=== PATIENT | male | born 1955 | race Caucasian/White ===

== ENCOUNTER → 2017-08-05 | Outpatient (CLI) | payer OTHER ==
[~2017-08-05] MED LIST: OMNIPAQUE 180 MG/ML, 10ML VIAL ONE; ROPivacaine/PF 0.2%, 10 ML ONE; TRIAMCINOLONE ACETONIDE 40 MG/ML, 1ML ONE
== END ==
LOC: RAD 16:04 → EDSTATUS 17:00
PROVIDERS: ATTEND Radiology Diagnostic Radiology
DX: M25.562 Pain in left knee (principal)
CPT/HCPCS: 20606; 77002; J2795; J3301; Q9965; J3490

== ENCOUNTER → 2020-12-24 | Outpatient (CLI) | payer MEDICARE ==
[2020-12-24 07:40] LABS: BASOPHILS % (AUTO) 1 % (0-1); EOSINOPHILS % (AUTO) 2 % (1-7); LYMPHOCYTES % (AUTO) 37 % (22-44); MEAN CORPUSCULAR HEMOGLOBIN 32.4 pg (27.5-34.5); MEAN CORPUSCULAR HGB CONC 33.9 g/dL (33.2-36.2); MEAN PLATELET VOLUME 8.4 fL (7.4-10.4); MONOCYTES % (AUTO) 10 % (2-9); NEUTROPHILS % (AUTO) 50 % (42-75); PLATELET COUNT 215 x10^3/uL (130-400); RED BLOOD COUNT 4.13 x10^6/uL (4.38-5.82); RED CELL DISTRIBUTION WIDTH 13.9 % (9.4-14.8)
[2020-12-24 07:52] LABS: ALBUMIN 3.7 g/dL (3.4-5.0); ANION GAP 3 mmol/L (5-15); CALCIUM 8.9 mg/dL (8.5-10.1); CHLORIDE 108 mmol/L (98-107); CHOLESTEROL, TOTAL 185 mg/dL (140-239); TRIGLYCERIDES 74 mg/dL (50-200); VLDL CHOLESTEROL 15 mg/dL (0-25)
[2020-12-24 08:02] LABS: % IRON SATURATION 36 % (20-55); ALANINE AMINOTRANSFERASE 36 U/L (12-78); ALKALINE PHOSPHATASE 37 U/L (45-117); BILIRUBIN,TOTAL 0.4 mg/dL (0.2-1.0); CHOL/HDL RATIO 2.2; FREE T4 (FREE THYROXINE) 1.02 ng/dL (0.76-1.46); HDL CHOL % 45 % (26-37); HDL CHOLESTEROL (DIRECT) 84 mg/dL (40-60); IRON LEVEL 108 mcg/dL (65-175); LDL CHOLESTEROL,CALCULATED 86 mg/dL (54-169); TOTAL IRON BINDING CAPACITY 304 mcg/dL (250-450); TOTAL PROTEIN 6.5 g/dL (6.4-8.2)
== END | disposition home or self-care (01) ==
LOC: LAB 07:23
PROVIDERS: ATTEND Internal Medicine
DX: N40.0 Benign prostatic hyperplasia without lower urinary tract symptoms (principal); N42.9 Disorder of prostate, unspecified; D50.9 Iron deficiency anemia, unspecified; R73.01 Impaired fasting glucose; E78.5 Hyperlipidemia, unspecified; E03.9 Hypothyroidism, unspecified; D64.9 Anemia, unspecified
CPT/HCPCS: 36415; 80053; 80061; 83036; 83540; 83550; 84153; 84439; 84443; 85025; G0103

== ENCOUNTER 2021-01-09 14:07 | Inpatient (IN) | payer MEDICARE ==
[~2021-01-09] VITALS: Ht 185.4 cm; Wt 93.9 kg
--- NOTE | 2021-01-09 14:10 | NUR ---
STRAIGHT BACK TO T2, PT REPORTS "ABDOMINAL PAIN THAT STARTED AFTER EATING, AT FIRST VAGUE, THEN INCREASING CRAMPING LIKE WHEN YOU'RE READY TO HAVE A BM, I WAS ABLE TO HAVE 2 BOWEL MOVEMENTS WITHOUT DIFFICULTY BUT STILL HAVING CRAMPING PAIN." CONT PULSE OX, BP, CARDIAC MONITORS APPLIED. VSS. NSR ON MONITOR. PT DENIES CP, SOB, DIZZINESS, BLANDON, COUGH, FEVER, N/V/D. DR. BEGUM AT BEDSIDE FOR EVALUATION. AWAITING ORDERS. RAMAKRISHNA FUENTES AT BEDSIDE TO PLACE IV AND DRAWN LABS PER DR. BEGUM. EKG DONE. FALL PRECAUTIONS IN PLACE. CALL LIGHT IN REACH.
--- NOTE | 2021-01-09 14:15 | NUR ---
PT AWARE OF NPO STATUS, VERBALIZED UNDERSTANDING
[2021-01-09] MEDS ORDERED: ONDANSETRON 2MG/ML, 2ML ONE ×2 (14:23→18:00)
[2021-01-09] MEDS ORDERED: MORPHINE SULFATE 4 MG/ML, 1ML ONE ×3 (14:23→16:09)
[2021-01-09] MEDS: MORPHINE SULFATE 4 MG/ML, 1ML IVPush PRN ×2 (14:25→14:51)
--- NOTE | 2021-01-09 14:25 | NUR ---
RAMAKRISHNA FUENTES AT BEDSIDE TO ASSIST WITH MEDICATION ADMIN AND FSBS.
[2021-01-09] MEDS ORDERED: PLEASE ENTER HEIGHT AND WEIGHT MC SCH (14:30)
[2021-01-09] MEDS ORDERED: ONDANSETRON 2MG/ML, 2ML IVPush ONE (14:30)
[2021-01-09] MEDS ORDERED: SODIUM CHLORIDE 0.9% 1,000ML IVBOLUS ONE (14:30)
[2021-01-09] MEDS ORDERED: SODIUM CHLORIDE FLUSH 10ML SYR IVF ONE (14:30)
[2021-01-09 14:39] LABS: MEAN CORPUSCULAR HEMOGLOBIN 32.2 pg (27.5-34.5); MEAN CORPUSCULAR HGB CONC 33.6 g/dL (33.2-36.2); MEAN PLATELET VOLUME 9.2 fL (7.4-10.4); PLATELET COUNT 212 x10^3/uL (130-400); RED BLOOD COUNT 4.32 x10^6/uL (4.38-5.82); RED CELL DISTRIBUTION WIDTH 13.6 % (9.4-14.8)
[2021-01-09 14:43] LABS: ALANINE AMINOTRANSFERASE 27 U/L (12-78); ANION GAP 11 mmol/L (5-15); CALCIUM 8.6 mg/dL (8.5-10.1); CHLORIDE 105 mmol/L (98-107); CREATININE 1.03 mg/dL (0.7-1.3)
[2021-01-09 14:48] LABS: ALKALINE PHOSPHATASE 38 U/L (45-117); BILIRUBIN,TOTAL 0.4 mg/dL (0.2-1.0); TROPONIN I < 0.015 ng/mL (0.000-0.045)
--- NOTE | 2021-01-09 14:53 | NUR ---
PT MEDICATED NOTED IN [facility] FOR "SAME RELENTLESS PAIN" RATES ABD PAIN 6-10. "CRAMPING, ACHY." VSS. DR. MORENO AT BEDSIDE FOR EVAL. DENIES URGE TO USE RESTROOM. DR. BEGUM AWARE, NO NEW ORDERS RECEIVED. PT AWARE UA SAMPLE NEEDED. CALL LIGHT IN REACH. FALL PRECUATIONS IN PLACE. WILL CONTINUE TO MONITOR
[2021-01-09] MEDS ORDERED: GABA300C PO (14:56)
--- NOTE | 2021-01-09 14:56 | NUR ---
PT TO CT
[2021-01-09] MEDS ORDERED: OMNIPAQUE 350 MG/ML, 100ML BOTTLE ONE (15:07)
[2021-01-09 15:12] LABS: <PLATELET ESTIMATE> ADEQUATE; <PLT MORPHOLOGY> NORMAL PLT MORPH; <RBC MORPHOLOGY> NORMAL; BASOS#(MANUAL) 0.05 x10^3/uL (0-0.1); BASOS% (MANUAL) 1 % (0-1); EOS#(MANUAL) 0.14 x10^3/uL (0.0-0.4); EOS% (MANUAL) 3 % (1-7); LYMPHS% (MANUAL) 50 % (22-44); MONOS#(MANUAL) 0.58 x10^3/uL (0.3-2.7); MONOS% (MANUAL) 12 % (2-9); SEG#(MANUAL) 1.63 x10^3/uL (1.8-6.8); SEGS% (MANUAL) 34 % (42-75)
--- NOTE | 2021-01-09 15:14 | NUR ---
PT BACK FROM CT. REPORTS PAIN "GONE FOR NOW, JUST WENT AWAY." DENIES PAIN AND NAUSEA AND ANY URGE TO USE RESTROOM. DR. BEGUM AT BEDSIDE DISCUSSING POC, AWAITING ADDITIONAL ORDERS. VSS. CALL LIGHT IN REACH. FALL PRECAUTIONS IN PLACE
[2021-01-09] MEDS ORDERED: CEFOTETAN PMX 1GM/50ML 50 ML IVPB ONE (16:00)
[2021-01-09] MEDS ORDERED: SODIUM CHLORIDE 0.9% 1,000 ML IV ONE ×2 (16:00→16:30)
--- NOTE | 2021-01-09 16:11 | NUR ---
PT REPORTS PAIN 08/08, REQUESTING ADDITIONAL MORPHINE, DISCUSSED WITH DR. BEGUM, AWAITING ORDERS. VSS. IV ABX REQUESTED FROM PHARMACY, NO BLOOD CULTURES TO BE DRAWN PER DR. BEGUM. CALL LIGHT IN REACH. FALL PRECUATIONS IN PLACE. DENIES URGE TO USE RESTROOM, AWARE UA SAMPLE IS NEEDED.
[2021-01-09] MEDS ORDERED: ONDANSETRON 2MG/ML, 2ML IVPush PRN ×4 (16:30→20:00)
[2021-01-09] MEDS ORDERED: MORPHINE SULFATE 4 MG/ML, 1ML IVPush PRN ×2 (16:30)
[2021-01-09] MEDS ORDERED: SODIUM CHLORIDE FLUSH 10ML SYR IVF PRN (16:30)
[2021-01-09] MEDS ORDERED: MIDAZOLAM 1 MG/ML, 2ML ONE ×2 (16:39→17:39)
[2021-01-09] MEDS ORDERED: FENTANYL PF 100 MCG/2ML ONE ×2 (16:42→19:50)
[2021-01-09] MEDS ORDERED: BENZOCAINE 20% SPRAY 0.5ML ONE ×2 (16:43→16:57)
[2021-01-09] MEDS ORDERED: CEFOTETAN PMX 2GM/50ML 50 ML IV SCH (17:00)
[2021-01-09] MEDS ORDERED: PROMETHAZINE 25 MG/ML, 1ML IM PRN (17:00)
[2021-01-09] MEDS ORDERED: FENTANYL PF 100 MCG/2ML IV ONE (17:00)
[2021-01-09] MEDS ORDERED: MIDAZOLAM 1 MG/ML, 2ML IVPush ONE (17:00)
[2021-01-09] MEDS ORDERED: METOCLOPRAMIDE 5 MG/ML, 2ML IVPush PRN (17:00)
[2021-01-09] MEDS ORDERED: BENZOCAINE 20% SPRAY 0.5ML TP ONE (17:00)
--- NOTE | 2021-01-09 17:15 | NUR ---
PT ASSISTED WITH URINAL AT BEDSIDE, CLEAN CATCH UA COLLECTED AND SENT TO LAB. MEDICATED NOTED IN [facility] FOR PAIN AND NGT PLACEMENT. NGT PLACED BY THIS RN WITH ASSISTANCE FROM ROMY FUENTES. PT AWAKE, ALERT, A&OX4. VSS. REPORTS PAIN 06/10, REFUSES NEED FOR ADDITIONAL PAIN MED. TOLERATING NGT PLACEMENT WELL. 16FR NGT IN RIGHT NARE TO LOW CONT SUCTION PER DR. BEGUM. PLACEMENT VERIFIED WITH AUSCULTATION AND ASPIRATION, + ABD CONTENTS NOTED WITH ASPIRATION BY THIS RN AND ROMY FUENTES. CALL LIGHT IN REACH. VSS. REMAINS SR ON MONITOR.FALL PRECAUTIONS IN PLACE
[2021-01-09] MEDS: SODIUM CHLORIDE 0.9% 1,000 ML IV SCH (17:18)
--- NOTE | 2021-01-09 17:20 | NUR ---
DR. PERKINS AT BEDSIDE FOR EVALUATION
--- NOTE | 2021-01-09 17:25 | NUR ---
DR. BEGUM TO ORDER CXR FOR NGT PLACEMENT PER DR. PERKINS REQUEST. PT TO GO FROM ER TO OR FOR SURGERY, NOT TO FLOOR PRIOR TO SURGERY.
--- NOTE | 2021-01-09 17:32 | NUR ---
XRAY AT BEDSIDE FOR NGT PLACEMENT. DR. PERKINS TO FOLLOW UP ON XRAY READ AND NGT PLACEMENT IN OR. PT GOING TO OR
--- NOTE | 2021-01-09 17:34 | NUR ---
OR CALLED, REPORT GIVEN TO ABELINO FUENTES. [facility] HERE TO TAKE PT TO OR. PER DR. PERKINS AND YANIQUE CHRISTOPHER, NO RAPID COVID TO BE COLLECTED, PT TO OR PER DR. PERKINS AT BEDSIDE NOW. PT A&OX4. VSS AT TIME OF TRANSPORT
[2021-01-09] MEDS ORDERED: FENTANYL PF 250 MCG/5ML ONE (17:40)
[2021-01-09] MEDS ORDERED: PROPOFOL 50 ML ONE (17:41)
[2021-01-09 17:43] LABS: MICROSCOPIC NOT IND
[2021-01-09] MEDS ORDERED: ROCURONIUM 10MG/ML,5ML ONE (17:45)
[2021-01-09] MEDS ORDERED: SUCCINYLCHOLINE 20 MG/ML, 10ML ONE (18:00)
[2021-01-09] MEDS ORDERED: CEFOTETAN 2 GM ONE (18:14)
[2021-01-09] MEDS ORDERED: OXYcodone 5 MG/5 ML ORAL.SOL UDC PO PRN (18:30)
[2021-01-09] MEDS ORDERED: DIPHENHYDRAMINE 50 MG/ML, 1ML IVPush PRN ×2 (18:30→20:00)
[2021-01-09] MEDS ORDERED: LABETALOL 5MG/ML, 20ML IV PRN (18:30)
[2021-01-09] MEDS ORDERED: MEPERIDINE/PF 25MG/0.5ML IVPush PRN (18:30)
[2021-01-09] MEDS ORDERED: PROMETHAZINE 25 MG/ML, 1ML IVPush PRN (18:30)
[2021-01-09] MEDS ORDERED: morphine SULFATE 10 MG/ML, 1ML IVPush PRN (18:30)
[2021-01-09] MEDS ORDERED: DIAZEPAM 5 MG/ML, 2ML IVPush PRN (18:30)
[2021-01-09] MEDS ORDERED: EPHEDRINE 50 MG/ML, 1ML IM PRN (18:30)
[2021-01-09] MEDS ORDERED: FENTANYL PF 100 MCG/2ML IV PRN (18:30)
[2021-01-09] MEDS ORDERED: EPHEDRINE 50 MG/ML, 1ML IVPush PRN (18:30)
[2021-01-09] MEDS ORDERED: HYDROmorphone 2 MG/ML, 1ML ONE (19:51)
[2021-01-09] MEDS ORDERED: MEPERIDINE/PF 25MG/ML,1ML ONE (19:51)
[2021-01-09] MEDS ORDERED: D5%-0.45NACL+KCL 20MEQ 1,000 ML IV SCH (20:00)
[2021-01-09] MEDS: KETOROLAC 30 MG/1 ML IVPush SCH (20:00)
[2021-01-09] MEDS ORDERED: HYDROmorphone 1 MG/ML, 1ML INJ IVPush PRN (20:00)
[2021-01-09] MEDS ORDERED: KETOROLAC 30 MG/1 ML ONE (20:38)
[2021-01-09] MEDS: GABAPENTIN 300 MG CAPSULE PO SCH (22:38)
[2021-01-09] MEDS: MEROPENEM 1 GM in SODIUM CHLORIDE 0.9% 100 ML IV SCH (23:06)
[2021-01-09] MEDS: ACETAMINOPHEN 100 ML IVPB SCH (23:37)
[2021-01-09] MEDS: morphine SULFATE 10 MG/ML, 1ML IVPush PRN (23:37)
[2021-01-10] MEDS: PIPERACILLIN/TAZO 3.375 GM in DEXTROSE 5% 50 ML IVPB SCH ×3 (00:02→12:28)
[2021-01-10 01:03] VITALS: BP 111/65
[2021-01-10] MEDS: SODIUM CHLORIDE 0.9% 1,000 ML IV SCH ×3 (02:21→20:40)
[2021-01-10] MEDS: KETOROLAC 30 MG/1 ML IVPush SCH ×4 (02:21→20:57)
[2021-01-10 03:45] LABS: BASOPHILS % (AUTO) 1 % (0-1); EOSINOPHILS % (AUTO) 0 % (1-7); LYMPHOCYTES % (AUTO) 11 % (22-44); MEAN CORPUSCULAR HEMOGLOBIN 32.3 pg (27.5-34.5); MEAN CORPUSCULAR HGB CONC 33.7 g/dL (33.2-36.2); MEAN PLATELET VOLUME 8.9 fL (7.4-10.4); MONOCYTES % (AUTO) 10 % (2-9); NEUTROPHILS % (AUTO) 79 % (42-75); PLATELET COUNT 169 x10^3/uL (130-400); RED BLOOD COUNT 4.01 x10^6/uL (4.38-5.82); RED CELL DISTRIBUTION WIDTH 13.8 % (9.4-14.8)
[2021-01-10 03:57] LABS: ALBUMIN 3.1 g/dL (3.4-5.0); ANION GAP 7 mmol/L (5-15); CALCIUM 7.5 mg/dL (8.5-10.1); CHLORIDE 107 mmol/L (98-107)
[2021-01-10 04:01] LABS: ALANINE AMINOTRANSFERASE 27 U/L (12-78); ALKALINE PHOSPHATASE 32 U/L (45-117); BILIRUBIN,TOTAL 0.6 mg/dL (0.2-1.0); CREATININE 0.99 mg/dL (0.7-1.3); TOTAL PROTEIN 5.8 g/dL (6.4-8.2)
[2021-01-10 04:35] VITALS: BP 115/67
[2021-01-10] MEDS: ACETAMINOPHEN 100 ML IVPB SCH ×3 (05:27→17:54)
[2021-01-10] MEDS: MEROPENEM 1 GM in SODIUM CHLORIDE 0.9% 100 ML IV SCH ×3 (06:29→23:37)
[2021-01-10] MEDS: morphine SULFATE 10 MG/ML, 1ML IVPush PRN (06:35)
[2021-01-10 07:19] VITALS: BP 107/66
[2021-01-10] MEDS: ENOXAPARIN 40 MG/0.4 ML SQ SCH (09:21)
[2021-01-10 13:54] VITALS: BP 121/71
[2021-01-10] MEDS ORDERED: SODIUM CHLORIDE 0.9%, 500ML IVBOLUS ONE (20:00)
[2021-01-10] MEDS: GABAPENTIN 300 MG CAPSULE PO SCH (21:00)
[2021-01-10 21:08] VITALS: BP 136/73
[2021-01-11 02:04] VITALS: BP 114/68
[2021-01-11] MEDS: KETOROLAC 30 MG/1 ML IVPush SCH ×4 (02:55→23:02)
[2021-01-11] MEDS: LORazepam 2 MG/ML, 1ML IVPush PRN ×4 (03:06→21:51)
[2021-01-11 03:18] LABS: BASOPHILS % (AUTO) 1 % (0-1); EOSINOPHILS % (AUTO) 1 % (1-7); LYMPHOCYTES % (AUTO) 18 % (22-44); MEAN CORPUSCULAR HEMOGLOBIN 32.5 pg (27.5-34.5); MEAN PLATELET VOLUME 8.9 fL (7.4-10.4); MONOCYTES % (AUTO) 8 % (2-9); NEUTROPHILS % (AUTO) 72 % (42-75); PLATELET COUNT 173 x10^3/uL (130-400); RED BLOOD COUNT 3.74 x10^6/uL (4.38-5.82); RED CELL DISTRIBUTION WIDTH 13.7 % (9.4-14.8)
[2021-01-11 03:31] LABS: ALBUMIN 2.6 g/dL (3.4-5.0); ANION GAP 5 mmol/L (5-15); CALCIUM 7.9 mg/dL (8.5-10.1); CHLORIDE 108 mmol/L (98-107); CREATININE 0.69 mg/dL (0.7-1.3)
[2021-01-11] MEDS: SODIUM CHLORIDE 0.9% 1,000 ML IV SCH (03:58)
[2021-01-11] MEDS: MEROPENEM 1 GM in SODIUM CHLORIDE 0.9% 100 ML IV SCH ×3 (06:38→23:02)
[2021-01-11 07:58] VITALS: BP 137/78
[2021-01-11] MEDS: ENOXAPARIN 40 MG/0.4 ML SQ SCH (10:20)
[2021-01-11 13:43] VITALS: BP 134/70
[2021-01-11 20:20] VITALS: BP 112/67
[2021-01-11] MEDS: GABAPENTIN 300 MG CAPSULE PO SCH (20:29)
[2021-01-12 03:06] VITALS: BP 133/73
[2021-01-12] MEDS: SODIUM CHLORIDE 0.9% 1,000 ML IV SCH ×3 (03:12→19:40)
[2021-01-12 03:23] LABS: BASOPHILS % (AUTO) 1 % (0-1); EOSINOPHILS % (AUTO) 4 % (1-7); LYMPHOCYTES % (AUTO) 33 % (22-44); MEAN CORPUSCULAR HEMOGLOBIN 32.5 pg (27.5-34.5); MEAN CORPUSCULAR HGB CONC 34.4 g/dL (33.2-36.2); MEAN PLATELET VOLUME 8.5 fL (7.4-10.4); MONOCYTES % (AUTO) 10 % (2-9); NEUTROPHILS % (AUTO) 53 % (42-75); PLATELET COUNT 169 x10^3/uL (130-400); RED BLOOD COUNT 3.41 x10^6/uL (4.38-5.82); RED CELL DISTRIBUTION WIDTH 13.7 % (9.4-14.8)
[2021-01-12 03:36] LABS: ALBUMIN 2.7 g/dL (3.4-5.0); ANION GAP 3 mmol/L (5-15); CALCIUM 7.9 mg/dL (8.5-10.1); CHLORIDE 111 mmol/L (98-107); CREATININE 0.67 mg/dL (0.7-1.3)
[2021-01-12] MEDS: LORazepam 2 MG/ML, 1ML IVPush PRN (05:30)
[2021-01-12] MEDS: KETOROLAC 30 MG/1 ML IVPush SCH ×3 (05:30→18:50)
[2021-01-12 09:30] VITALS: BP 131/80
[2021-01-12] MEDS: MEROPENEM 1 GM in SODIUM CHLORIDE 0.9% 100 ML IV SCH ×2 (10:24→16:37)
[2021-01-12] MEDS: ENOXAPARIN 40 MG/0.4 ML SQ SCH (10:25)
[2021-01-12 14:00] LABS: CLOSTRIDIUM DIFFICILE ANTIGEN NEGATIVE; CLOSTRIDIUM DIFFICILE TOXIN NEGATIVE (Negative)
[2021-01-12 16:20] VITALS: BP 137/77
[2021-01-12] MEDS ORDERED: KETOROLAC 30 MG/1 ML ONE (18:34)
[2021-01-12 20:30] VITALS: BP 129/68
[2021-01-12] MEDS: GABAPENTIN 300 MG CAPSULE PO SCH (21:00)
[2021-01-13] MEDS: MEROPENEM 1 GM in SODIUM CHLORIDE 0.9% 100 ML IV SCH ×2 (00:02→08:06)
[2021-01-13 02:10] VITALS: BP 122/73
[2021-01-13] MEDS: SODIUM CHLORIDE 0.9% 1,000 ML IV SCH ×2 (02:20→09:00)
[2021-01-13] MEDS: ENOXAPARIN 40 MG/0.4 ML SQ SCH (08:07)
[2021-01-13 08:15] VITALS: BP 116/74
[2021-01-13] MEDS ORDERED: KETOROLAC 30 MG/1 ML IVPush PRN (09:00)
[2021-01-13 14:13] VITALS: BP 120/71
== END 2021-01-13 15:03 | disposition home or self-care (01) | DRG 329 ==
LOC: ED 16:03 → EDIP 16:04 → SUATTDRO 16:21 → ED 17:15 → 4NE 22:01
PROVIDERS: ADMIT Internal Medicine; ATTEND Internal Medicine
PROC: 0DB80ZZ Excision of Small Intestine, Open Approach (ICD-10-PCS; 2021-01-09)
PROC: 0D9670Z Drainage of Stomach with Drainage Device, Via Natural or Artificial Opening (ICD-10-PCS; principal; 2021-01-09 18:30)
DX: K46.0 Unspecified abdominal hernia with obstruction, without gangrene (principal); K63.1 Perforation of intestine (nontraumatic); K65.9 Peritonitis, unspecified; K56.601 Complete intestinal obstruction, unspecified as to cause; E87.2 Acidosis; K55.9 Vascular disorder of intestine, unspecified; Z96.652 Presence of left artificial knee joint; G62.9 Polyneuropathy, unspecified; Z87.01 Personal history of pneumonia (recurrent); Z79.82 Long term (current) use of aspirin; Z79.899 Other long term (current) drug therapy
CPT/HCPCS: 36415; 71045; 74018; 74177; 80048; 80053; 81003; 82040; 82962; 83605; 83690; 83735; 84100; 84484; 85025; 87040; 87070; 87075; 87102; 87205; 87324; 88307; 93005; 96361; 96374; 96375; 96376; G0378; J0131; J1650; J1885; J2175; J2185; J2250; J2405; J2543; J2704; J3010; Q9967; J0330; J2060; J2270; J7030; J7040